=== PATIENT | male | born 1950 | race Native Hawaiian/Other Pacific Islander ===

== ENCOUNTER 2017-10-28 10:39 | Outpatient (CLI) | payer OTHER ==
[2017-10-28 11:14] LABS: PLATELET COUNT 144 K/uL (142-355)
[2017-10-28 11:30] LABS: POTASSIUM 3.9 mmol/L (3.6-5.2)
== END 2017-10-28 19:04 | disposition home or self-care (01) ==
LOC: LABW 10:39
PROVIDERS: Internal Medicine
DX: N18.4 Chronic kidney disease, stage 4 (severe) (principal); E11.9 Type 2 diabetes mellitus without complications
CPT/HCPCS: 36415; 80053; 81000; 82043; 82330; 82570; 83036; 83735; 84100; 84155; 85027

== ENCOUNTER 2017-11-06 18:50 | Observation (INO) | payer OTHER ==
[~2017-11-06] VITALS: Ht 160 cm; Wt 108.7 kg
[2017-11-06 20:52] LABS: PLATELET COUNT 156 K/uL (142-355)
[2017-11-06 22:05] LABS: POTASSIUM 4.3 mmol/L (3.6-5.2)
[2017-11-07 01:14] VITALS: BP 174/63; TEMP 99.3; Ht 160 cm; Wt 108.7 kg
--- NOTE | 2017-11-07 01:50 | NUR ---
11/06/17 1930 ADMITTED TO ROOM 1109 DX PNEUMONIA OREINTED TO ROOM CALL LIGHT WITHIN REACH.CC
[2017-11-07 04:00] VITALS: BP 170/54; TEMP 98.5
[2017-11-07 08:00] VITALS: BP 137/58; TEMP 98.6
[2017-11-07 12:00] VITALS: BP 141/70; TEMP 97.5
[2017-11-07 16:26] VITALS: BP 148/46; TEMP 99.7
--- NOTE | 2017-11-07 18:00 | NUR ---
DR. OTTO IN TO SEE PATIENT. PLANS TO DISCHARGE PATIENT IN THE AM. PATIENT AND HIS ARE AGREEABLE.
[2017-11-07 20:00] VITALS: BP 150/60; TEMP 98.7
[2017-11-08] VITALS: BP 117/44; TEMP 98.1
[2017-11-08 04:00] VITALS: BP 139/41; TEMP 97.8
[2017-11-08 08:00] VITALS: BP 155/57; TEMP 97.9
[2017-11-08 12:00] VITALS: BP 127/61; TEMP 98.1
== END 2017-11-08 15:30 | disposition home or self-care (01) ==
LOC: MED/SURG 18:50
PROVIDERS: ADMIT Family Medicine
DX: J18.8 Other pneumonia, unspecified organism (principal); I44.1 Atrioventricular block, second degree; I45.19 Other right bundle-branch block
CPT/HCPCS: 36600; 80053; 82805; 82948; 83880; 85027; 87040; 87804; 93005; 94640; 94664; 94760; 96367; 96372; 96374; 96375; 99220; G0378; G0379; J2930

== ENCOUNTER 2018-02-20 06:37 | Outpatient (CLI) | payer OTHER ==
[2018-02-20 07:03] LABS: PLATELET COUNT 138 K/uL (142-355)
== END 2018-02-20 22:29 | disposition home or self-care (01) ==
LOC: LABW 06:37
PROVIDERS: Hospitalist
DX: E11.3293 Type 2 diabetes mellitus with mild nonproliferative diabetic retinopathy without macular edema, bilateral (principal)
CPT/HCPCS: 36415; 80053; 81000; 82043; 82570; 83036; 83735; 83970; 84100; 84155; 85027

== ENCOUNTER 2018-05-13 09:55 | Outpatient (CLI) | payer OTHER ==
[2018-05-13 10:27] LABS: PLATELET COUNT 142 K/uL (142-355)
[2018-05-13 14:16] LABS: POTASSIUM 4.6 mmol/L (3.6-5.2)
== END 2018-05-13 22:15 | disposition home or self-care (01) ==
LOC: LABW 09:55
PROVIDERS: Internal Medicine
DX: N18.4 Chronic kidney disease, stage 4 (severe) (principal); E55.9 Vitamin D deficiency, unspecified
CPT/HCPCS: 36415; 80053; 81000; 82043; 82306; 82570; 83735; 84100; 84155; 85027

== ENCOUNTER 2018-08-26 08:57 | Outpatient (CLI) | payer OTHER ==
[2018-08-26 09:11] LABS: PLATELET COUNT 109 K/uL (142-355)
[2018-08-26 09:24] LABS: POTASSIUM 4.9 mmol/L (3.6-5.2)
== END 2018-08-26 19:35 | disposition home or self-care (01) ==
LOC: LABW 08:57
PROVIDERS: Internal Medicine
DX: N18.4 Chronic kidney disease, stage 4 (severe) (principal)
CPT/HCPCS: 36415; 80053; 83735; 83970; 84100; 85027

== ENCOUNTER 2018-12-09 10:31 | Outpatient (CLI) | payer OTHER ==
[2018-12-09 11:01] LABS: PLATELET COUNT 246 K/uL (142-355)
[2018-12-09 11:09] LABS: POTASSIUM 4.5 mmol/L (3.6-5.2)
== END 2018-12-09 19:30 | disposition home or self-care (01) ==
LOC: LABW 10:31
PROVIDERS: Internal Medicine
DX: N18.4 Chronic kidney disease, stage 4 (severe) (principal); I73.9 Peripheral vascular disease, unspecified; M10.9 Gout, unspecified; E11.22 Type 2 diabetes mellitus with diabetic chronic kidney disease
CPT/HCPCS: 36415; 80053; 82306; 82552; 83036; 83735; 83970; 84100; 84550; 85027

== ENCOUNTER 2018-12-21 11:24 | Outpatient (CLI) | payer OTHER ==
[2018-12-21 12:01] LABS: PLATELET COUNT 208 K/uL (142-355)
[2018-12-21 12:02] LABS: POTASSIUM 4.6 mmol/L (3.6-5.2)
== END 2018-12-21 22:39 | disposition home or self-care (01) ==
LOC: LABW 11:24
PROVIDERS: Internal Medicine
DX: N18.4 Chronic kidney disease, stage 4 (severe) (principal)
CPT/HCPCS: 36415; 80053; 83735; 84100; 85027

== ENCOUNTER 2019-02-10 10:38 | Outpatient (CLI) | payer OTHER ==
[2019-02-10 10:55] LABS: PLATELET COUNT 189 K/uL (142-355)
[2019-02-10 11:08] LABS: POTASSIUM 4.4 mmol/L (3.6-5.2)
== END 2019-02-10 22:27 | disposition home or self-care (01) ==
LOC: LABW 10:38
PROVIDERS: Internal Medicine
DX: N18.4 Chronic kidney disease, stage 4 (severe) (principal); E55.9 Vitamin D deficiency, unspecified
CPT/HCPCS: 36415; 80053; 81000; 82043; 82306; 82570; 83735; 84100; 84155; 85027

== ENCOUNTER 2019-03-11 10:19 | Outpatient (CLI) | payer OTHER ==
[2019-03-11 10:51] LABS: PLATELET COUNT 163 K/uL (142-355)
[2019-03-11 11:06] LABS: POTASSIUM 5.2 mmol/L (3.6-5.2)
== END 2019-03-11 23:51 | disposition home or self-care (01) ==
LOC: LABW 10:19
PROVIDERS: Internal Medicine
DX: N18.5 Chronic kidney disease, stage 5 (principal)
CPT/HCPCS: 36415; 80053; 81000; 82330; 82570; 83735; 84100; 84155; 85027

== ENCOUNTER 2019-04-14 13:47 | Outpatient (CLI) | payer OTHER | END 2019-04-14 23:31 | disposition home or self-care (01) | LOC: CT 13:47 | DX: R22.2 Localized swelling, mass and lump, trunk (principal) ==

== ENCOUNTER 2019-05-14 12:14 | Outpatient (CLI) | payer OTHER ==
[2019-05-14 12:50] LABS: PLATELET COUNT 123 K/uL (142-355)
[2019-05-14 12:59] LABS: POTASSIUM 4.4 mmol/L (3.6-5.2)
== END 2019-05-14 23:47 | disposition home or self-care (01) ==
LOC: LABW 12:14
PROVIDERS: Internal Medicine
DX: N18.5 Chronic kidney disease, stage 5 (principal)
CPT/HCPCS: 36415; 80053; 81000; 82330; 82570; 83735; 84100; 84155; 85027

== ENCOUNTER 2019-06-15 09:27 | Outpatient (CLI) | payer OTHER ==
[2019-06-15 09:45] LABS: PLATELET COUNT 133 K/uL (142-355)
[2019-06-15 09:55] LABS: POTASSIUM 4.4 mmol/L (3.6-5.2)
== END 2019-06-15 20:15 | disposition home or self-care (01) ==
LOC: LABW 09:27
PROVIDERS: Internal Medicine
DX: N18.5 Chronic kidney disease, stage 5 (principal)
CPT/HCPCS: 36415; 80053; 81000; 82330; 82570; 83735; 84100; 84155; 85027

== ENCOUNTER 2019-08-03 09:29 | Outpatient (CLI) | payer OTHER ==
[2019-08-03 09:56] LABS: PLATELET COUNT 113 K/uL (142-355)
[2019-08-03 10:06] LABS: POTASSIUM 4.7 mmol/L (3.6-5.2)
== END 2019-08-03 20:16 | disposition home or self-care (01) ==
LOC: LABW 09:29
PROVIDERS: Internal Medicine
DX: R22.2 Localized swelling, mass and lump, trunk (principal); N18.5 Chronic kidney disease, stage 5; E11.9 Type 2 diabetes mellitus without complications; E03.8 Other specified hypothyroidism
CPT/HCPCS: 36415; 80053; 81000; 82330; 82570; 83735; 84100; 84155; 84439; 84443; 85027

== ENCOUNTER 2019-09-05 12:13 | Outpatient (CLI) | payer OTHER | END 2019-09-05 12:15 | disposition short-term general hospital (02) | LOC: AMB 12:13 | DX: I46.9 Cardiac arrest, cause unspecified (principal) | CPT/HCPCS: A0425; A0433 ==

== ENCOUNTER 2019-09-05 12:18 | Emergency (ER) | payer OTHER ==
[~2019-09-05] VITALS: Ht 177.8 cm; Wt 117.9 kg
[2019-09-05 12:40] LABS: PLATELET COUNT 110 K/uL (142-355)
[2019-09-05 12:51] LABS: POTASSIUM 4.7 mmol/L (3.6-5.2)
[2019-09-05 13:30] VITALS: BP 156/67
== END 2019-09-05 13:35 | disposition short-term general hospital (02) ==
LOC: ED 12:19
PROVIDERS: Hospitalist
PROC: 0T9B70Z Drainage of Bladder with Drainage Device, Via Natural or Artificial Opening (ICD-10-PCS; principal; 2019-09-05)
PROC: 5A12012 Performance of Cardiac Output, Single, Manual (ICD-10-PCS; 2019-09-05)
PROC: 0BH17EZ Insertion of Endotracheal Airway into Trachea, Via Natural or Artificial Opening (ICD-10-PCS; 2019-09-05)
PROC: 5A1935Z Respiratory Ventilation, Less than 24 Consecutive Hours (ICD-10-PCS; 2019-09-05)
DX: I46.9 Cardiac arrest, cause unspecified (principal); J44.1 Chronic obstructive pulmonary disease with (acute) exacerbation; I50.9 Heart failure, unspecified
CPT/HCPCS: 31500; 36600; 51702; 80053; 80307; 81000; 82550; 82805; 83880; 84484; 85027; 85379; 92950; 93005; 94002; 96365; 96375; 96376; 99285; J0171; J0282; J0461; J1940; J2250; J3490

== ENCOUNTER 2019-09-05 13:41 | Outpatient (CLI) | payer OTHER | END 2019-09-05 14:51 | disposition short-term general hospital (02) | LOC: AMB 13:41 | DX: I21.19 ST elevation (STEMI) myocardial infarction involving other coronary artery of inferior wall (principal); I45.19 Other right bundle-branch block | CPT/HCPCS: A0425; A0427 ==